=== PATIENT | female | born 1990 | race Caucasian/White ===

== ENCOUNTER 2017-03-15 06:16 | Inpatient (IN) ==
[2017-03-15] MEDS ORDERED: ONDANSETRON 4 MG/2 ML VIAL IV PRN ×2 (07:27→17:17)
[2017-03-15] MEDS ORDERED: BUTORPHANOL 2 MG/ML VIAL IV PRN (07:27)
[2017-03-15 07:51] LABS: Basophils % 0.2 % (0.0-0.8); Eosinophils # 0.1 10*3/uL (0.0-0.87); Eosinophils % 0.8 % (0.00-10.9); Hematocrit 31.4 VOL% (35.7-47.0); Hemoglobin 11.2 GM/DL (12.0-16.0); Immature Granulocytes % 0.7 %; Immature Granulocytes Absolute 0.06 #; Lymphocytes # 1.9 10*3/uL (1.4-4.0); Lymphocytes % 23.3 % (21.3-54.2); Mean Corpuscular HGB Conc 35.7 GM/DL (32-36); Mean Corpuscular Hemoglobin 30 PG (27-34); Mean Corpuscular Volume 85.3 FL (87-102); Mean Platelet Volume 10.1 FL (9.6-12.0); Monocytes # 0.8 10*3/uL (0.11-0.8); Monocytes % 9.7 % (1.7-12.7); Neutrophils # 5.4 10*3/uL (1.4-7.4); Neutrophils % 65.3 % (38.7-73.9); Platelet Count 141 T/CUMM (130-400); Red Blood Count 3.68 MC/CUMM (3.8-5.5); White Blood Count 8.3 T/CUMM (4-12)
[2017-03-15] MEDS: LACTATED RINGERS 1,000 ML IV SCH ×3 (08:05→17:37)
[2017-03-15] MEDS: OXYTOCIN/LR 20 UNIT/1,000 ML BAG IV SCH (08:06)
[2017-03-15 08:27] LABS: Alanine Aminotransferase 16 U/L (13-56); Albumin 2.7 G/DL (3.4-5.0); Alkaline Phosphatase 179 U/L (45-117); Aspartate Amino Transferase 14 U/L (0-37); Bilirubin,Total < 0.39 MG/DL (0.2-1.0); Blood Urea Nitrogen 15 MG/DL (7-18); Calcium 8.4 MG/DL (8.5-10.1); Glucose 86 MG/DL (74-106); Osmolality,Calculated 280.3 MOS/KG (273-304); Potassium 3.6 MMOL/L (3.5-5.1); Sodium 141 MMOL/L (136-145)
--- NOTE | 2017-03-15 08:46 | History and Physical Update ---
History and Physical Update - History and Physical H&P was reviewed, the patient examined and there: are no changes in the patients condition since last H&P was completed. - Dictation Physical: refer to scanned H&P - Physical Exam Mental Status: alert and oriented Heart: regular rate and rhythm Lung: clear to auscultation Abdomen: within normal limits Vitals: within normal limits History and Physical Changes: 39 wks for induction. No complications. GBS negative.
[2017-03-15] MEDS ORDERED: ePHEDrine 50 MG/ML AMP IV PRN (10:42)
[2017-03-15] MEDS ORDERED: CITRIC ACID/SODIUM CITRATE 30 ML UDCUP PO ONE (10:42)
[2017-03-15] MEDS ORDERED: LACTATED RINGERS 1,000 ML IV ONE (10:42)
[2017-03-15] MEDS ORDERED: FAMOTIDINE 20 MG/2 ML VIAL IV ONE (10:42)
[2017-03-15] MEDS ORDERED: diphenhydrAMINE 50 MG/1 ML VIAL IV PRN ×2 (10:43)
[2017-03-15] MEDS ORDERED: PROMETHAZINE 25 MG/1 ML VIAL IM ONE (10:43)
[2017-03-15] MEDS ORDERED: hydrOXYzine HCL 25 MG/1 ML VIAL IM PRN (10:43)
[2017-03-15] MEDS: fentaNYL 2 MCG/ROPIV 0.2% EPID 150 ML EPIDURAL SCH (12:54)
[2017-03-15] MEDS ORDERED: LACTATED RINGERS 250 ML IV ONE (13:06)
[2017-03-15 15:38] LABS: Apearance,Urine CLEAR (Clear); Bilirubin,Urine Negative (Negative); Blood, Urine Negative (Negative); Glucose,Urine (UA) Negative (Negative); Ketones,Urine Negative (Negative); Mucus,Urine Occasional /LPF (Occasional); Nitrite,Urine Negative (Negative); Protein,Urine Negative; Squamous Epithelial Cell,Urine Occasional /HPF (0-10); Urine Color Yellow (Yellow); Urine Specific Gravity 1.021 (1.001-1.035); Urine Urobilinogen < 2.0 EU/DL (0.2-1.0); WBC,Urine <1 /HPF (0-6)
[2017-03-15] MEDS ORDERED: LIDOCAINE 1% 50 ML VIAL ONE (16:31)
[2017-03-15] MEDS ORDERED: miSOPROStol 200 MCG TABLET ONE (16:31)
[2017-03-15] MEDS ORDERED: METHYLERGONOVINE 0.2 MG/1 ML AMP ONE (16:48)
[2017-03-15] MEDS ORDERED: miSOPROStol 200 MCG TABLET RECTAL ONE (16:52)
[2017-03-15] MEDS ORDERED: METHYLERGONOVINE 0.2 MG/1 ML AMP IM ONE (16:53)
[2017-03-15] MEDS ORDERED: CARBOPROST TROMETHAMINE 250 MCG/ML AMP IM ONE ×2 (16:59→17:03)
[2017-03-15] MEDS ORDERED: ACETAMINOPHEN 325 MG TABLET PO PRN (17:17)
[2017-03-15] MEDS ORDERED: OXYTOCIN/LR 20 UNIT/1,000 ML BAG IV ONE (17:17)
[2017-03-15] MEDS ORDERED: HYDROCORTISONE 2.5% RECTAL CREAM 30 GM TUBE TOP PRN (17:17)
[2017-03-15] MEDS ORDERED: oxyCODONE/ACETAMINOPHEN 5-325 MG TABLET PO PRN (17:17)
[2017-03-15] MEDS ORDERED: WITCH HAZEL PADS 100/JAR TOP PRN (17:17)
[2017-03-15] MEDS ORDERED: MEASLES/MUMPS/RUBELLA VACCINE 0.5 ML VIAL SUBCUT ONE (17:17)
[2017-03-15] MEDS ORDERED: DIPH/TET/ACEL PERT BOOSTER VACCINE 0.5 ML VIAL IM ONE (17:17)
[2017-03-15] MEDS ORDERED: BENZOCAINE 20%/MENTHOL 0.5% SPRAY 56 GM CAN TOP PRN (17:17)
[2017-03-15] MEDS ORDERED: IBUPROFEN 800 MG TABLET PO PRN (17:17)
[2017-03-15] MEDS ORDERED: LANOLIN 50% CREAM 0.3 OZ TUBE TOP PRN (17:17)
[2017-03-15] MEDS ORDERED: RHO(D) IMMUNE GLOBULIN 300 MCG SYRINGE IM ONE (17:17)
[2017-03-15] MEDS ORDERED: BISACODYL 10 MG SUPP RECTAL PRN (17:17)
--- NOTE | 2017-03-15 17:25 | Operative Note ---
Date of procedure: 03/15/17 Pre-op diagnosis: 39 weeks for induction Post-op diagnosis: same Procedure: ; 2nd degree perineal laceration; Bilateral periurethral lacerations (right repaired, left hemostatic); Right medial labial laceration, repaired; uterine atony resolved after IV Pitocin, rectal Cytotec, IM Methergine; IM Hemabate, gentle Banjo currettage of uterine cavity. Anesthesia: epidural Surgeon / Physician: Noa Lyon Estimated blood loss: other (800cc) Specimens: other (placenta to path; cord blood to lab---(placenta seemed smaller than expected for the size of the baby)) Condition: stable Disposition: no change Results - Labs CBC & BMP: 03/15/17 07:43 03/15/17 07:42 Discharge Plan - Discharge Medications No Action Vit #76/Iron,Carb/FA [Pnv 29-1 Tablet] 1 capsule PO DIRECTED Ferrous Sulfate 325 mg PO DAILY - Follow Up or Referral - Forms/Instructions
[2017-03-15] MEDS: DOCUSATE SODIUM 100 MG CAPSULE PO SCH (21:20)
[2017-03-15] MEDS: oxyCODONE/ACETAMINOPHEN 5-325 MG TABLET PO PRN (21:20)
[2017-03-16 04:04] LABS: Basophils % 0.1 % (0.0-0.8); Eosinophils % 0.3 % (0.00-10.9); Hematocrit 25.9 VOL% (35.7-47.0); Immature Granulocytes % 0.6 %; Immature Granulocytes Absolute 0.07 #; Lymphocytes # 1.4 10*3/uL (1.4-4.0); Lymphocytes % 12.1 % (21.3-54.2); Mean Corpuscular Hemoglobin 30 PG (27-34); Mean Platelet Volume 10.1 FL (9.6-12.0); Monocytes # 0.9 10*3/uL (0.11-0.8); Monocytes % 7.7 % (1.7-12.7); Neutrophils # 9.4 10*3/uL (1.4-7.4); Neutrophils % 79.2 % (38.7-73.9); Platelet Count 116 T/CUMM (130-400); Red Cell Distribution Width 13.2 % (9.3-17.3); White Blood Count 11.9 T/CUMM (4-12)
[2017-03-16 04:10] LABS: Hemoglobin 8.8 GM/DL (12.0-16.0); Red Blood Count 2.91 MC/CUMM (3.8-5.5)
--- NOTE | 2017-03-16 07:18 | Anesthesia Post-Op ---
Anesthesia Post OP - Post Ansesthetic Evaluation Patient seen in post op: Yes
[2017-03-16] MEDS: LACTATED RINGERS 1,000 ML IV SCH ×4 (07:49→09:28)
[2017-03-16] MEDS: fentaNYL 2 MCG/ROPIV 0.2% EPID 150 ML EPIDURAL SCH (07:50)
--- NOTE | 2017-03-16 08:48 | OB/GYN Progress Note ---
Assessment and Plan (1) Vaginal delivery Status: Acute Assessment and plan: Routine care. Current Visit: Yes [employer] - PN: Subj Interval history: PPD#1 Doing well without complaints. Exam [employer]ATOR - Constitutional Vitals: Vital Signs Temp Pulse Resp BP Pulse Ox 03/16/17 08:00 18 03/16/17 06:00 18 03/16/17 05:32 18 03/16/17 05:05 18 03/16/17 04:00 18 03/16/17 03:13 18 03/16/17 01:40 18 03/16/17 00:10 18 03/15/17 22:54 72 19 123/60 99 03/15/17 21:31 81 18 126/67 100 03/15/17 21:20 18 03/15/17 20:31 97.0 F L 67 18 126/65 100 03/15/17 20:09 18 03/15/17 20:01 72 18 121/66 99 03/15/17 19:31 97.8 F 81 18 133/70 03/15/17 19:05 18 03/15/17 12:00 97.9 F 66 18 132/79 97 General appearance: normal weight, no acute distress - Head Head exam: Present: normal inspection, normocephalic - Eye Eye exam: Present: EOMI - Respiratory Respiratory exam: Present: clear to auscultation bilaterally - Cardiovascular Cardiovascular exam: Present: regular rate and rhythm - GI/Abdominal GI/Abdominal exam: Present: soft (fundus firm, nontender) - Extremities Exam Extremities exam: Present: normal inspection - Neurological Exam Neurological exam: Present: alert, oriented X3 - Psychiatric Psychiatric exam: Present: normal affect, normal mood - Skin Skin exam: Present: normal color, warm Results - Labs CBC & BMP: 03/16/17 03:55 03/15/17 07:42 Lab Results: I have reviewed the past 24 hour labs
--- NOTE | 2017-03-16 08:51 | Discharge Summary ---
<Noa Lyon - Last Filed: 03/16/17 08:48> Hospital Course - Hospital Course Hospital Course: Pt delivered without complication. Her course has been unremarkable except that she's done very well. Pt is without difficulty Diagnosis - Discharge Diagnosis (1) Vaginal delivery Status: Acute Specialty Discharge - Follow Up or Referrals Follow up with: Noa Lyon DO [Physician] - 04/26/17 10:45 am (6 wks ) Discharge Plan - Discharge Data Disposition: Disch To Home/Self Care Condition at Discharge: Stable Discharge Diet: regular diet Activity: other (pelvic rest x 6 wks) Hygiene: may shower Weight Bearing at Discharge: full weight bearing Driving: no restrictions (if not taking narcotics) Contact your physician if you experience:: fever over 101, Difficulty voiding, Redness or swelling, Nausea/Vomiting, Shortness of breath, Bleeding, pain uncontrolled by pain medications - Discharge Medications New Ibuprofen Tab [Motrin Tab] 800 mg PO Q6H PRN #30 tablet PRN Reason: Pain Moderate (4-7) oxyCODONE/ACETAMINOPHEN 5-325 [Percocet 5-325] 1 tablet PO Q6H PRN #20 tablet PRN Reason: Pain Severe (8-10) Continue Vit #76/Iron,Carb/FA [Pnv 29-1 Tablet] 1 capsule PO DIRECTED Discontinued Ferrous Sulfate 325 mg PO DAILY - Follow Up or Referral Follow Up: Noa Lyon DO [Physician] - 04/26/17 10:45 am (6 wks ) - Forms/Instructions Instructions: Ibuprofen (By mouth), Oxycodone/Acetaminophen (By mouth), Vaginal Delivery (DC), Bleeding (DC) Exam - Constitutional Vitals: Period Temp Pulse Resp BP Sys/Alatorre Pulse Ox Last 24 Hr 96.7 F-98.1 F 69-94 18-20 106-131/52-63 95-100 General appearance: normal weight, no acute distress - Head Head exam: Present: normal inspection, normocephalic - Eye Eye exam: Present: EOMI - Respiratory Respiratory exam: Present: clear to auscultation bilaterally - Cardiovascular Cardiovascular exam: Present: regular rate and rhythm - GI/Abdominal GI/Abdominal exam: Present: soft (fundus firm, nontender) - Extremities Exam Extremities exam: Present: normal inspection - Neurological Exam Neurological exam: Present: alert, oriented X3 - Psychiatric Psychiatric exam: Present: normal affect, normal mood - Skin Skin exam: Present: normal color, warm DS: Provider Date of admission: 03/15/17 06:16 Primary care physician: . No PCP Attending physician on admission: Noa Lyon DO Consults: 03/15/17 07:27 Consult to Anesthesiology [CONS] Routine Consulting Provider: Reason for Anesthesiology: Epidural Consult Comment: Epidural for pain managment 03/15/17 17:17 Consult to It Security Consultant [CONS] Routine Consult It Security Consultant: Breast Feeding Discharging clinician: Noa Lyon DO Expected date of discharge: 03/17/17 <Alma Mcfarlane - Last Filed: 03/17/17 10:22> Hospital Course - Time spent with patient Time with patient DS: Less than 30 minutes Discharge Plan - Discharge Data Activity: other Driving: no restrictions Exam - GI/Abdominal GI/Abdominal exam: Present: normal bowel sounds, other (Fundus U-2, ML, Firm, non-tender)
[2017-03-16] MEDS: OXYTOCIN/LR 20 UNIT/1,000 ML BAG IV SCH (09:28)
[2017-03-16] MEDS: DOCUSATE SODIUM 100 MG CAPSULE PO SCH ×2 (09:46→22:00)
[2017-03-16] MEDS: oxyCODONE/ACETAMINOPHEN 5-325 MG TABLET PO PRN (10:26)
[2017-03-17 08:43] VITALS: BP 118/57
[2017-03-17] MEDS: DOCUSATE SODIUM 100 MG CAPSULE PO SCH (09:35)
--- NOTE | 2017-03-17 12:23 | Pathology Report from [facility] ---
[facility] ACCESSION # : [id number] PATIENT NAME : Edna Tamayo ORDERING DR : YESICA MARTINEZ CLINICAL HX: Term gestation, induction of labor, placenta small for size of infant POST-OP DX: Same SPECIMEN INFO: Placenta GROSS DESCRIPTION: Received fresh labeled with the patients name and consists of a 424 gram placenta which measures 20.0 x 19.0 x 2.0 cm. membranes are pink-sousa and translucent. The umbilical cord measures 55.0 cm, and is focally edematous. The cord contains three vessels and is centrally inserted. The surface is blue-blackwood and intact. The maternal surface is intact with a few scattered calcifications seen. Sectioning reveals no gross abnormalities. Sections submitted: A membranes and cord, B and maternal surfaces. DIAGNOSIS FOR EDNA TAMAYO: PLACENTA, MEMBRANES, UMBILICAL CORD: Focal placental infarction with dystrophic calcification, mild intervillous blood. Tri -vessel umbilical cord. Membranes with focal chronic inflammation and attached blood. COLLECTED DATE: 03/16/2017 [facility] REPORT DATE: 03/17/2017 ELECTRONICALLY SIGNED BY: Daisha Duong M.D. 03/17/2017 - 9:53:35 [id number]
== END 2017-03-17 12:00 | disposition home or self-care (01) | DRG 768 ==
LOC: N.LD 06:16 → N.OB 03-16 12:51
PROVIDERS: ADMIT Obstetrics & Gynecology; ATTEND Obstetrics & Gynecology

== ENCOUNTER 2022-04-25 06:24 | Inpatient (IN) ==
[2022-04-25] MEDS ORDERED: ONDANSETRON 4 MG/2 ML VIAL IV PRN (07:29)
[2022-04-25] MEDS ORDERED: BUTORPHANOL 2 MG/ML VIAL IV PRN (07:29)
[2022-04-25] MEDS ORDERED: METHYLERGONOVINE 0.2 MG/1 ML AMP IM PRN (07:29)
[2022-04-25] MEDS ORDERED: miSOPROStoL 200 MCG TABLET RECTAL PRN (07:29)
[2022-04-25] MEDS ORDERED: TRANEXAMIC ACID 1,000 MG in SODIUM CHLORIDE 0.9% 100 ML IV PRN (07:29)
[2022-04-25] MEDS ORDERED: CARBOPROST TROMETHAMINE 250 MCG/ML AMP IM PRN (07:29)
[2022-04-25] MEDS ORDERED: MEPERIDINE 50 MG/1 ML VIAL IV PRN (07:29)
[2022-04-25] MEDS ORDERED: OXYTOCIN/LR 20 UNIT/1,000 ML BAG IV ONE ×2 (07:29→07:39)
[2022-04-25] MEDS ORDERED: OXYTOCIN/LR 20 UNIT/1,000 ML BAG IV SCH (07:30)
[2022-04-25] MEDS ORDERED: hydrOXYzine HCL 25 MG/1 ML VIAL IM PRN (07:34)
[2022-04-25] MEDS ORDERED: CITRIC ACID/SODIUM CITRATE 30 ML UDCUP PO ONE (07:34)
[2022-04-25] MEDS ORDERED: ePHEDrine 50 MG/ML VIAL IV PRN (07:34)
[2022-04-25] MEDS ORDERED: diphenhydrAMINE 50 MG/1 ML VIAL IV PRN (07:34)
[2022-04-25] MEDS ORDERED: NALOXONE 0.4 MG/ML VIAL IV PRN (07:34)
[2022-04-25] MEDS ORDERED: FAMOTIDINE 20 MG/2 ML VIAL IV ONE (07:34)
[2022-04-25] MEDS ORDERED: PROMETHAZINE 25 MG/1 ML VIAL IM PRN (07:34)
[2022-04-25] MEDS: LACTATED RINGERS 1,000 ML IV SCH ×2 (07:45→10:13)
[2022-04-25 07:48] LABS: Basophils % 0.3 % (0.0-0.8); Eosinophils # 0.1 10*3/uL (0.0-0.87); Eosinophils % 0.8 % (0.00-10.9); Hemoglobin 11.4 GM/DL (12.0-16.0); Immature Granulocytes % 1.4 %; Lymphocytes # 1.6 10*3/uL (1.4-4.0); Lymphocytes % 22.1 % (21.3-54.2); Mean Corpuscular HGB Conc 34.5 GM/DL (32-36); Mean Corpuscular Volume 86.2 FL (87-102); Mean Platelet Volume 9.9 FL (9.6-12.0); Monocytes # 0.6 10*3/uL (0.11-0.8); Monocytes % 8.6 % (1.7-12.7); Neutrophils % 66.8 % (38.7-73.9); Platelet Count 147 T/CUMM (130-400); Red Blood Count 3.83 MC/CUMM (3.8-5.5); White Blood Count 7.3 T/CUMM (4-12)
[2022-04-25] MEDS ORDERED: fentaNYL 2 MCG/ROPIV 0.2% EPID 100 ML EPIDURAL SCH (08:00)
[2022-04-25 11:28] LABS: Mucus,Urine Many /LPF (Occasional); RBC,Urine 412 /HPF (0-4)
[2022-04-25 11:29] LABS: Glucose,Urine (UA) Negative (Negative); Protein,Urine 30 mg/dL (Negative); Urine Appearance Slightly Hazy (Clear); Urine Color Yellow (Yellow); Urine Specific Gravity > 1.030 (1.001-1.035)
[2022-04-25 11:30] LABS: Bilirubin,Urine Negative (Negative); Blood, Urine Large mg/dL (Negative); Ketones,Urine Negative (Negative); Nitrite,Urine Negative (Negative)
[2022-04-25] MEDS ORDERED: miSOPROStoL 200 MCG TABLET ONE (13:52)
[2022-04-25] MEDS ORDERED: METHYLERGONOVINE 0.2 MG/1 ML AMP ONE (13:53)
[2022-04-25] MEDS ORDERED: CARBOPROST TROMETHAMINE 250 MCG/ML AMP IM ONE (13:53)
[2022-04-25 14:25] LABS: Cord Venous Blood HCO3 23.8 MMOL/L; Cord Venous Blood PCO2 36.3 MMHG; Cord Venous Blood PO2 39.5
[2022-04-25] MEDS ORDERED: IBUPROFEN 800 MG TABLET PO PRN (21:13)
[2022-04-25] MEDS: DOCUSATE SODIUM 100 MG CAPSULE PO SCH (22:16)
[2022-04-26 06:07] LABS: Basophils % 0.4 % (0.0-0.8); Eosinophils % 0.4 % (0.00-10.9); Hematocrit 33.7 VOL% (35.7-47.0); Hemoglobin 11.2 GM/DL (12.0-16.0); Lymphocytes # 2.1 10*3/uL (1.4-4.0); Mean Corpuscular HGB Conc 33.2 GM/DL (32-36); Mean Platelet Volume 10.1 FL (9.6-12.0); Monocytes # 0.8 10*3/uL (0.11-0.8); Monocytes % 7.6 % (1.7-12.7); Neutrophils % 69.6 % (38.7-73.9); Platelet Count 141 T/CUMM (130-400); Red Blood Count 3.83 MC/CUMM (3.8-5.5); White Blood Count 9.9 T/CUMM (4-12)
[2022-04-26] MEDS: DOCUSATE SODIUM 100 MG CAPSULE PO SCH ×2 (09:03→20:34)
[2022-04-27] MEDS: DOCUSATE SODIUM 100 MG CAPSULE PO SCH (09:43)
[2022-04-27 11:44] VITALS: BP 109/61
== END 2022-04-27 13:20 | disposition home or self-care (01) | DRG 807 ==
LOC: N.LD 06:24 → N.OB 17:30
PROVIDERS: ADMIT Obstetrics & Gynecology; ATTEND Obstetrics & Gynecology